=== PATIENT | male | born 1960 | race Two or more races ===

== ENCOUNTER 2017-12-12 11:03 | Outpatient (CLI) | payer OTHER ==
[~2017-12-12 11:03] MED LIST: CATAFLAM50 MG PO; DECADRON P4 MG/ML-1M IH; FLEXERIL 10 MG PO; GABAPENTIN800 MG PO; HYZAAR 100-251 EACH PO; HYZAAR 100/25 T1 TAB PO; MECLIZINE HCL25 MG PO; NAPROXEN500 MG PO; NEURONTIN600 MG; NEURONTIN600 MG PO; NEURONTIN800 MG PO; NORVASC5 MG PO; ROBAXIN500 MG PO; TORADOL60 MG IM; VOLTAREM 50 MG PO; VOLTAREM 75 MG PO; ZANAFLEX6 MG PO; ZYRTEC10 MG PO
== END 2017-12-12 13:12 | disposition home or self-care (01) ==
LOC: RAD 11:03
DX: M51.36 Other intervertebral disc degeneration, lumbar region (principal); M54.6 Pain in thoracic spine

== ENCOUNTER → 2018-03-18 06:27 | Outpatient (CLI) | payer OTHER | END | disposition home or self-care (01) | LOC: LAB 06:27 | DX: I10 Essential (primary) hypertension (principal); Z13.1 Encounter for screening for diabetes mellitus; Z12.11 Encounter for screening for malignant neoplasm of colon; Z12.5 Encounter for screening for malignant neoplasm of prostate ==

== ENCOUNTER 2018-08-27 06:36 | Outpatient (CLI) | payer OTHER | END 2018-08-27 06:48 | disposition home or self-care (01) | LOC: LAB 06:36 | DX: M19.049 Primary osteoarthritis, unspecified hand (principal); M25.50 Pain in unspecified joint; I10 Essential (primary) hypertension ==

== ENCOUNTER 2018-11-11 12:29 | Outpatient (CLI) | payer OTHER | END 2018-11-11 15:28 | disposition home or self-care (01) | LOC: LAB 12:29 | DX: J11.1 Influenza due to unidentified influenza virus with other respiratory manifestations (principal); J11.89 Influenza due to unidentified influenza virus with other manifestations ==

== ENCOUNTER 2018-11-17 10:30 | Emergency (ER) | payer OTHER ==
[~2018-11-17] VITALS: Ht 177.8 cm; Wt 117.9 kg
[2018-11-17] MEDS ORDERED: ATACAND32 MG (10:35)
== END 2018-11-17 11:50 | disposition home or self-care (01) ==
LOC: ER 10:30
DX: M54.5 Low back pain (principal)

== ENCOUNTER 2019-03-25 09:21 | Outpatient (CLI) | payer OTHER ==
[~2019-03-25 09:21] MED LIST changes: +ATACAND32 MG
== END 2019-03-25 15:00 | disposition home or self-care (01) ==
LOC: RAD 09:21
DX: M25.561 Pain in right knee (principal)

== ENCOUNTER → 2019-07-20 | Outpatient (CLI) | payer OTHER | END | disposition home or self-care (01) | LOC: RAD 14:05 | DX: M25.512 Pain in left shoulder (principal) ==

== ENCOUNTER 2019-07-28 06:10 | Outpatient (CLI) | payer OTHER | END 2019-07-28 09:15 | disposition home or self-care (01) | LOC: LAB 06:10 | DX: E03.8 Other specified hypothyroidism (principal); E11.9 Type 2 diabetes mellitus without complications; N40.1 Benign prostatic hyperplasia with lower urinary tract symptoms ==

== ENCOUNTER 2019-08-13 10:04 | Outpatient (CLI) | payer OTHER | END 2019-08-13 12:06 | disposition home or self-care (01) | LOC: MRI 10:04 | DX: M65.812 Other synovitis and tenosynovitis, left shoulder (principal) | CPT/HCPCS: 73221 ==

== ENCOUNTER 2022-08-30 07:00 | Inpatient (IN) | payer OTHER ==
[~2022-08-30] VITALS: Ht 180.3 cm; Wt 108.9 kg
[2022-08-30] MEDS ORDERED: ATACAND HCT 321 EAC1 PO (07:42)
[2022-08-30] MEDS ORDERED: ATORVASTATIN CA20 MG PO (07:42)
[2022-08-30] MEDS ORDERED: NORVASC5 MG PO (07:42)
[2022-08-30] MEDS ORDERED: LYRICA50 MG PO (07:43)
[2022-08-30] MEDS ORDERED: LYRIC PO (07:43)
[2022-08-30] MEDS ORDERED: CLONAZEPAM1 MG PO (07:44)
[2022-08-30] MEDS ORDERED: BUPRO PO (07:44)
[2022-08-30] MEDS ORDERED: ESTAZOLAM2 MG PO (07:45)
[2022-08-30] MEDS ORDERED: VOLTA PO (07:45)
[2022-09-04] MEDS ORDERED: BUPROPION XL150 MG (10:31)
[2022-09-04] MEDS ORDERED: TAMSULOSIN HCL0.4 MG (10:32)
[2022-09-06] MEDS ORDERED: PERCOCET 5-3251 EACH PO (16:18)
[2022-09-06] MEDS ORDERED: CIPRO500 MG PO (16:18)
[2022-09-06] MEDS ORDERED: ELIQUIS2.5 MG PO (16:19)
== END 2022-09-06 22:36 | DRG 470 ==
LOC: O/R 09-04 05:46 → SURG 09-04 05:46
PROVIDERS: ADMIT Orthopaedic Surgery; ATTEND Orthopaedic Surgery
PROC: 0MNP0ZZ Release Left Knee Bursa and Ligament, Open Approach (ICD-10-PCS; 2022-09-04)
PROC: 0SRD0J9 Replacement of Left Knee Joint with Synthetic Substitute, Cemented, Open Approach (ICD-10-PCS; principal; 2022-09-04 07:00)
DX: M17.12 Unilateral primary osteoarthritis, left knee (principal); D62 Acute posthemorrhagic anemia; M22.12 Recurrent subluxation of patella, left knee